=== PATIENT | female | born 1935 | race Caucasian/White ===

== ENCOUNTER 2016-11-19 13:10 | Emergency (ER) | payer MEDICARE ==
[~2016-11-19 13:10] MED LIST: ABILIFY2 M1 PO; ADULT ASPIRIN81 MG PO; ADVAIR 2501 DISK W/D INH; ADVAIR 25028 BLISTER INH; ALDACTONE25 MG PO; ALPRAZOLAM OD0.25 MG PO; ALPRAZOLAM0.25 M2 PO; AMBIEN10 MG; AMBIEN10 MG PO; AMBIEN5 M1 PO; AMBIEN5 MG PO; AMIODARONE HCL200 MG PO; ATENOLOL25 MG; ATENOLOL50 MG PO; AUGMENTIN 875-1 EAC2 PO; BENAZEPRIL HCL5 MG PO; CARDIZEM60 M1 PO; CEPHALEXIN500 MG PO; CHLORASEPTIC SO2 LOZ MM; CLOTRIMAZOLE10 M1 PO; COMBIVENT INH14.7 GM; COMBIVENT INH14.7 GM IH; COMBIVENT RESPIM4 G1 INH; COMPAZINE10 M; COMPAZINE10 M PO; COREG3.125 M1 PO; COREG3.125 MG PO; COREG6.25 M1 PO; COREG6.25 MG PO; COUMADIN1 M1 PO; COUMADIN2 M1 PO; COUMADIN3 MG PO; COUMADIN4 M1 PO; COUMADIN4 MG PO; CULTURELLE1 EAC1 PO; CYMBALTA20 MG PO; CYMBALTA30 M1 PO; CYMBALTA60 MG PO; DIGOXIN125 MCG PO; DIOVAN160 M; DULCOLAX10 MG RC; DULERA 100 MCG/13 G1 IH; FLECAINIDE ACET50 MG PO; FUROSEMIDE40 MG PO; GABAPENTIN300 MG PO; HYDRALAZINE HCL25 M1 PO; HYDRALAZINE HCL25 MG PO; HYDROCODON-ACE1 EAC5 PO; IPRAT-ALBUT 0.5-3 ML IH; IRON325 M1 PO; ISOSORBIDE MONO30 M1 PO; K-DUR10 ME1 PO; KLONOPIN0.5 M1 PO; KLOR-CON 1010 MEQ PO; KLOR-CON-1010 MEQ PO; LANOXIN125 MC1 PO; LASIX20 M1 PO; LASIX40 M1 PO; LASIX40 MG PO; LEVAQUIN750 M1 PO; LEVAQUIN750 MG PO; LEVOFLOXACIN500 MG PO; LEVOTHROID25 MCG PO; LEVOTHROID50 MCG PO; LEVOTHROID75 MCG PO; LEXAPRO10 MG PO; LIPITOR40 M1 PO; MEDROL4 MG/DOSE- PO; MIRALAX17 G2 PO; MUCINEX600 M1 PO; MULTIVITAMIN1 TAB PO; NICODERM21 MG/PATC TD; NICOTINE PATCH1 EAC1 TD; NORCO 10/3251 TA1 PO; NORCO 5-325 TA1 EACH PO; NORCO 5/325 TAB1 TAB PO; NORCO PO; NYSTATIN PO; OMNICEF300 MG; PERCOCET 5/3251 TAB PO; POTASSIUM CHLO10 ME1 PO; POTASSIUM20 MEQ/13 PO; PREDNISONE10 M1; PREDNISONE10 M1 PO; PREDNISONE20 M1 PO; PROAIR HFA8.5 GM INH; PROTONIX40 M2 PO; ST. JOSEPH ASP325 MG PO; SYMBICORT 160-1 PUFF INH; SYNTHROID75 MC1 PO; SYNTHROID75 MCG PO; TYLENOL325 M1 PO; TYLENOL325 M2 PO; TYLENOL650 MG PO; VENTOLIN HFA18 G2 PO; VENTOLIN HFA18 GM INH; XANAX XR0.5 MG PO; XANAX0.25 M1 PO; XANAX0.5 M1 PO; ZEBETA5 MG PO; ZITHROMAX500 M2 PO; [UNRECOGNIZED DRUG - OTHER] PO
[2016-11-19] MEDS ORDERED: CYMBALTA30 M1 PO (13:39)
[2016-11-19] MEDS ORDERED: CYMBALTA60 M1 PO (13:40)
[2016-11-19] MEDS ORDERED: WELLBUTRIN XL150 M1 PO (13:41)
[2016-11-19] MEDS ORDERED: COUMADIN2 M1 PO ×2 (13:42)
[2016-11-19] MEDS ORDERED: ADVAIR 50028 BLISTE1 INH (13:42)
[2016-11-19] MEDS ORDERED: IPRAT-ALBUT 0.5-3 ML INH (13:43)
[2016-11-19] MEDS ORDERED: CEFDINIR300 M1 PO (13:43)
[2016-11-19] MEDS ORDERED: PERCOCET 5-3251 EACH PO (14:19)
== END 2016-11-19 14:44 ==
LOC: EDMED 13:10
DX: G89.29 Other chronic pain (principal); M54.5 Low back pain; I48.91 Unspecified atrial fibrillation; I10 Essential (primary) hypertension; E03.9 Hypothyroidism, unspecified; J45.909 Unspecified asthma, uncomplicated; Z90.49 Acquired absence of other specified parts of digestive tract; Z95.0 Presence of cardiac pacemaker; Z90.13 Acquired absence of bilateral breasts and nipples; Z98.890 Other specified postprocedural states

== ENCOUNTER 2016-11-22 17:40 | Inpatient (IN) | payer MEDICARE ==
[~2016-11-22 17:40] MED LIST changes: +ADVAIR 50028 BLISTE1 INH; +CEFDINIR300 M1 PO; +CYMBALTA60 M1 PO; +IPRAT-ALBUT 0.5-3 ML INH; +PERCOCET 5-3251 EACH PO; +WELLBUTRIN XL150 M1 PO
[2016-11-22 18:13] LABS: BASO % 0.1 % (0-2); EOS % 0.6 % (0-7); EOSINOPHIL ABSOLUTE COUNT 0.1 tho/cmm (0.0-0.7); HCT-HEMATOCRIT 37.2 % (34.0-49.0); HGB-HEMOGLOBIN 10.9 gm/dl (12.0-15.5); IMMATURE GRANULOCYTES ABSOLUTE 0.03 tho/cmm (0-0.03); IMMATURE GRANULOCYTES PERCENT 0.2 % (0-0.3); LYMPH % 9.9 % (20-45); LYMPH ABSOLUTE COUNT 1.7 tho/cmm (0.8-4.5); MCH (MEAN CORPUSCULAR HGB) 24.8 pg (28.0-32.0); MCHC MEAN CORPUSCULAR HGB CONC 29.3 % (32.0-36.0); MCV (MEAN CELL VOLUME) 84.5 fl (82.0-96.0); MEAN PLATELET VOLUME 8.8 cmc (9.4-12.4); MONO % 6.3 % (0-12); MONOCYTE ABSOLUTE COUNT 1.1 tho/cmm (0.0-1.2); NEUTROPHILS % 82.9 % (40-80); PLATELET COUNT 229 tho/cmm (150-450); RED CELL DISTRIBUTION WIDTH 17.2 % (12.4-16.4); WHITE BLOOD COUNT 16.9 tho/cmm (4.0-10.0)
[2016-11-22 18:36] LABS: ANION GAP 13 mmol/L (0-20); BLOOD UREA NITROGEN 23 mg/dl (6-24); CALCIUM 8.2 mg/dl (8.5-10.5); CARBON DIOXIDE-VENOUS 29 mmol/L (22-32); CHLORIDE 103 mmol/l (96-110); CREATININE 1.35 mg/dl (0.50-1.10); GLUCOSE 115 mg/dL (70-110); MAGNESIUM 1.5 mg/dl (1.8-2.6); POTASSIUM 3.7 mmol/L (3.7-5.1); SODIUM 141 mmol/L (135-145); eGFR VALUE FOR BLACK 42 mL/Min
[2016-11-22 20:04] LABS: INR 1.9 INR (0.9-1.1); PROTHROMBIN TIME 21.9 SECONDS (9.0-13.6)
[2016-11-23 06:13] LABS: HCT-HEMATOCRIT 37.8 % (34.0-49.0); IMMATURE GRANULOCYTES ABSOLUTE 0.03 tho/cmm (0-0.03); IMMATURE GRANULOCYTES PERCENT 0.2 % (0-0.3); LYMPH % 5.8 % (20-45); LYMPH ABSOLUTE COUNT 0.8 tho/cmm (0.8-4.5); MCH (MEAN CORPUSCULAR HGB) 24.4 pg (28.0-32.0); MCHC MEAN CORPUSCULAR HGB CONC 29.1 % (32.0-36.0); MEAN PLATELET VOLUME 9.7 cmc (9.4-12.4); MONO % 0.8 % (0-12); MONOCYTE ABSOLUTE COUNT 0.1 tho/cmm (0.0-1.2); NEUTROPHIL ABSOLUTE COUNT 12.8 tho/cmm (1.6-8.0); NEUTROPHIL-AUTOMATED 12.8 tho/cmm (1.6-8.0); NEUTROPHILS % 93.2 % (40-80); PLATELET COUNT 250 tho/cmm (150-450); RED CELL DISTRIBUTION WIDTH 17.3 % (12.4-16.4); WHITE BLOOD COUNT 13.7 tho/cmm (4.0-10.0)
[2016-11-23 06:14] LABS: INR 1.8 INR (0.9-1.1)
[2016-11-23 06:20] LABS: ANION GAP 13 mmol/L (0-20); BLOOD UREA NITROGEN 24 mg/dl (6-24); CALCIUM 8.4 mg/dl (8.5-10.5); CARBON DIOXIDE-VENOUS 30 mmol/L (22-32); CHLORIDE 102 mmol/l (96-110); CREATININE 1.32 mg/dl (0.50-1.10); GLUCOSE 131 mg/dL (70-110); POTASSIUM 4.4 mmol/L (3.7-5.1); SODIUM 141 mmol/L (135-145); eGFR VALUE FOR BLACK 43 mL/Min
[2016-11-23] MEDS ORDERED: PERCOCET 5-3251 EACH PO (10:02)
--- NOTE | 2016-11-23 15:09 | NUR ---
VIRTUAL CARE NOTE: PT RESTING ON BED, SOB WHEN TALKING YET. DENIES ANY DISCOMFORT. HAS SPEECH EVAL DONE TODAY PT STATES IT DONE WELL. PLAN OF CARE REVIEWED WITH PT-DENIES QUESTIONS OR CONCERNS.
[2016-11-24 07:31] LABS: INR 1.7 INR (0.9-1.1); PROTHROMBIN TIME 20.4 SECONDS (9.0-13.6)
[2016-11-24 07:41] LABS: ANION GAP 13 mmol/L (0-20); BLOOD UREA NITROGEN 30 mg/dl (6-24); CALCIUM 8.8 mg/dl (8.5-10.5); CARBON DIOXIDE-VENOUS 31 mmol/L (22-32); CHLORIDE 107 mmol/l (96-110); GLUCOSE 137 mg/dL (70-110); POTASSIUM 4.2 mmol/L (3.7-5.1); SODIUM 147 mmol/L (135-145); eGFR VALUE FOR BLACK 40 mL/Min
[2016-11-25 06:01] LABS: PROTHROMBIN TIME 23.8 SECONDS (9.0-13.6)
[2016-11-25] MEDS ORDERED: COUMADIN2.5 M1 PO (12:54)
[2016-11-25] MEDS ORDERED: DELTASONE20 MG PO (13:06)
[2016-11-25] MEDS ORDERED: PREDNISONE10 M1 PO (13:07)
== END 2016-11-25 15:45 | disposition home health service (06) | DRG 178 ==
LOC: EDMED 17:40 → EMR2 20:03 → 5WD 21:12
PROVIDERS: Emergency Medicine; Hospitalist; ADMIT Hospitalist
DX: J69.0 Pneumonitis due to inhalation of food and vomit (principal); J44.1 Chronic obstructive pulmonary disease with (acute) exacerbation; I13.0 Hypertensive heart and chronic kidney disease with heart failure and stage 1 through stage 4 chronic kidney disease, or unspecified chronic kidney disease; I50.9 Heart failure, unspecified; I42.9 Cardiomyopathy, unspecified; Z66 Do not resuscitate; I48.91 Unspecified atrial fibrillation; N18.3 Chronic kidney disease, stage 3 (moderate); R60.9 Edema, unspecified; F41.9 Anxiety disorder, unspecified; F32.9 Major depressive disorder, single episode, unspecified; E03.9 Hypothyroidism, unspecified; E78.5 Hyperlipidemia, unspecified; G47.00 Insomnia, unspecified; I25.5 Ischemic cardiomyopathy; M47.9 Spondylosis, unspecified; Z86.73 Personal history of transient ischemic attack (TIA), and cerebral infarction without residual deficits; Z95.0 Presence of cardiac pacemaker; Z79.01 Long term (current) use of anticoagulants; Z88.1 Allergy status to other antibiotic agents; Z88.2 Allergy status to sulfonamides; Z87.891 Personal history of nicotine dependence
CPT/HCPCS: G8996-GN-CJ; G8997-GN-CJ; G8998-GN-CJ; J1940; J1956; J2930; J7512

== ENCOUNTER 2016-12-13 17:02 | Emergency (ER) | payer MEDICARE ==
[~2016-12-13 17:02] MED LIST changes: +COUMADIN2.5 M1 PO; +DELTASONE20 MG PO
[2016-12-13 17:56] LABS: INR 1.9 INR (0.9-1.1); PROTHROMBIN TIME 22.4 SECONDS (9.0-13.6)
[2016-12-13 17:59] LABS: BASO % 0.2 % (0-2); EOS % 1.7 % (0-7); EOSINOPHIL ABSOLUTE COUNT 0.1 tho/cmm (0.0-0.7); HCT-HEMATOCRIT 36.4 % (34.0-49.0); HGB-HEMOGLOBIN 10.3 gm/dl (12.0-15.5); LYMPH % 30.4 % (20-45); LYMPH ABSOLUTE COUNT 1.8 tho/cmm (0.8-4.5); MCH (MEAN CORPUSCULAR HGB) 24.3 pg (28.0-32.0); MCV (MEAN CELL VOLUME) 85.8 fl (82.0-96.0); MEAN PLATELET VOLUME 9.3 cmc (9.4-12.4); MONO % 9.5 % (0-12); MONOCYTE ABSOLUTE COUNT 0.6 tho/cmm (0.0-1.2); NEUTROPHIL ABSOLUTE COUNT 3.5 tho/cmm (1.6-8.0); NEUTROPHIL-AUTOMATED 3.5 tho/cmm (1.6-8.0); NEUTROPHILS % 58.2 % (40-80); PLATELET COUNT 180 tho/cmm (150-450); RED BLOOD COUNT 4.24 mil/cmm (4.00-5.20); RED CELL DISTRIBUTION WIDTH 18.5 % (12.4-16.4)
[2016-12-13 18:04] LABS: MCHC MEAN CORPUSCULAR HGB CONC 28.3 % (32.0-36.0)
== END 2016-12-13 18:37 ==
LOC: EDMED 17:02
PROVIDERS: Emergency Medicine
DX: S09.90XA Unspecified injury of head, initial encounter (principal); S00.31XA Abrasion of nose, initial encounter; H11.31 Conjunctival hemorrhage, right eye; Z79.01 Long term (current) use of anticoagulants; W01.198A Fall on same level from slipping, tripping and stumbling with subsequent striking against other object, initial encounter; I48.91 Unspecified atrial fibrillation; Z88.2 Allergy status to sulfonamides; Z23 Encounter for immunization; Z79.899 Other long term (current) drug therapy; Y92.012 Bathroom of single-family (private) house as the place of occurrence of the external cause